=== PATIENT | male | born 2005 | race Two or more races ===

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

== ENCOUNTER 2024-02-27 15:57 | Emergency (ER) | payer MEDICAID, OTHER ==
[~2024-02-27] VITALS: Ht 172.7 cm; Wt 77.3 kg
[~2024-02-27 15:57] MED LIST: CEPH-558 PO; DOXY-354 PO; IBUP-1506 PO
[2024-02-27 16:13] VITALS: TEMP 98.6
[2024-02-27 18:33] VITALS: BP 108/60; PULSE 77; RESP 16
[2024-02-27 18:38] LABS: COVID AG,FIA SOURCE NASAL SWAB
[2024-02-27 19:18] LABS: SARS-COV2 (COVID) ANTIGEN,FIA Negative (Negative)
[2024-02-27 19:19] LABS: INFLUENZA TYPE A NEGATIVE FOR TYPE A (NEGATIVE); INFLUENZA TYPE B NEGATIVE FOR TYPE B (NEGATIVE)
== END 2024-02-27 21:39 | disposition left against medical advice (07) ==
LOC: EMS 15:59
DX: R05.9 Cough, unspecified (principal); Z20.822 Contact with and (suspected) exposure to COVID-19
CPT/HCPCS: 87804; 99283